=== PATIENT | male | born 1985 | race Caucasian/White ===

== ENCOUNTER 2019-09-08 12:04 | Emergency (ER) | payer MEDICAID, SELFPAY ==
[2019-09-08 12:07] VITALS: BP 152/98; PULSE 76; RESP 14; TEMP 37; O2SAT 98
--- NOTE | 2019-09-08 12:27 | ED.GENADUL_ITS ---
Discharge Plan Disposition Patient Disposition: HOME Discharge Details Chief Complaint: DentalOral Clinical Impression: Dental caries Primary Care Provider: Ricardo Cruz ED Provider: Maylin Casper Home Meds and New Rx's Prescriptions: New clindamycin HCl 300 mg capsule 300 mg PO BID 7 Days Qty: 14 RF: 0 No Action acetaminophen [Tylenol Extra Strength] 500 MG tablet 1,000 mg PO PRN PRNRF: 0 ibuprofen [Advil Liqui-Gel] 200 MG capsule 400 mg PO 0800 RF: 0 methadone 40 MG tablet,soluble 40 mg PO DAILY RF: 0 Discharge Instructions Instructions: How to Stop Smoking (ED), Dental Caries (ED) Additional Instructions: Follow up with Dentist.Stop smoking. You have been given dental resources. Take antibiotic as directed. Referrals: Ricardo Cruz MD [Primary Care Provider] - Medical Decision Making 33-year-old male with a history of chronic dental problems presents for dental pain. Patient states he has had this for 2 years. He is a smoker. He has multiple broken or missing teeth with dental caries. Gingiva is erythemic, no areas of fluctuance or signs of abscess. He has no other complaints at this time. Patient given topical Hurricaine benzocaine gel. Clindamycin 150 mg p.o. given in department. Prescription written for 300 mg twice a day x7 days. This is chronic in nature no signs of abscess or any intervention needed at this time. Patient given dental resources that are open during the COVID pandemic. Patient discharged home with strict return instructions. HPI General Mode of arrival: ambulatory . Date/Time Provider Initiated Documentation: 09/08/19 12:05 . Limitations to Documentation: no limitations . Information obtained by: patient . HPI Narrative: 33-year-old male with a history of chronic dental problems presents for dental pain. Patient states he has had this for 2 years. He is a smoker. He has multiple broken or missing teeth with dental caries. Gingiva is erythemic, no areas of fluctuance or signs of abscess. He has no other complaints at this time. Related Data Home Medications Medication Instructions Recorded Confirmed acetaminophen [Tylenol Extra 1,000 mg PO PRN PRN 11/15/12 10/20/17 Strength] ibuprofen [Advil] 400 mg PO 0800 10/20/17 10/20/17 methadone 40 mg PO DAILY 10/20/17 10/20/17 clindamycin HCl 300 mg PO BID 7 Days #14 cap 09/08/19 Previous Rx's Medication Instructions Recorded clindamycin HCl 300 mg PO BID 7 Days #14 cap 09/08/19 Allergies Allergy/AdvReac Type Severity Reaction Status Date / Time No Known Allergies Allergy Unverified 09/08/19 12:10 General Stated Complaint: DentalOral SANDRA: 5 Review of Systems Narrative: Constitutional: Negative for weight loss, alert and oriented, well groomed, normal body habitus, appears comfortable. HEENT: Denies trauma, headaches, blurry vision, nasal discharge, sore throat, trouble swallowing. Chest: Denies chest pain, palpitations, irregular rhythm, hypertension. Respiratory: Denies Shortness of breath, cough, hemoptysis. GI: Denies abdominal pain, nausea, vomiting, diarrhea, constipation. [facility] Social History Smoking/Tobacco Use Status: Current every day Alcohol Intake: current Drug use: Never Substance use type: does not use Do you feel safe at home: Yes Do you feel safe in your relationship?: Yes Exam Narrative Exam Narrative: Constitutional: Alert and oriented x3. Appears stated age. Normal body habitus. Head: Normocephalic, no trauma. Eyes: Pupils PERRLA, Red reflex noted, EOM's intact. Eyelids symmetrical without lesions, discharge, or swelling. ENT: Bilateral TM's WNL, External ear normal to inspection, no mastoid TTP, swelling, or erythema, Nasal turbinates WNL, no nasal discharge. Posterior pharynx WNL, no exudate. Multiple dental caries multiple broken teeth with surrounding gingival erythema. No area of fluctuance or signs of abscess. Chest: RRR, Normal S1, S2, distal pulses intact. Resp: Lungs clear to auscultation bilaterally, no wheezes, rales, or rhonchi. Hematologic/Lymphatic: No ecchymosis, no lymphadenopathy. Course Vital Signs Vital signs: Vital Signs Temperature 37.0 C 09/08/19 12:07 Pulse 76 09/08/19 12:07 Respiratory Rate 14 09/08/19 12:07 Blood Pressure 152/98 H 09/08/19 12:07 Pulse Oximetry 98 09/08/19 12:07 Temperature 37.0 C 09/08/19 12:07 Temperature Source Skin 09/08/19 12:07 Pulse 76 09/08/19 12:07 Respiratory Rate 14 09/08/19 12:07 Respiratory Effort Non-Labored 09/08/19 12:13 Blood Pressure 152/98 H 09/08/19 12:07 Blood Pressure Position Sitting 09/08/19 12:07 Pulse Oximetry 98 09/08/19 12:07 Oxygen Delivery Method Room Air 09/08/19 12:07 Oxygen Flow Rate 0 09/08/19 12:07 Pain Level 8 09/08/19 12:13
[2019-09-08] MEDS: Benzocaine 20% Gel 30 GM JAR MM (12:32)
[2019-09-08] MEDS: Clindamycin 150 MG CAP PO (12:33)
== END 2019-09-08 12:31 | disposition home or self-care (01) ==
PROVIDERS: Emergency Provider Registered Nurse Emergency; PCP Internal Medicine
DX: R68.84 Jaw pain (principal); K08.89 Other specified disorders of teeth and supporting structures; F17.210 Nicotine dependence, cigarettes, uncomplicated
CPT/HCPCS: 99283

== ENCOUNTER 2021-01-26 13:53 | Emergency (ER) | payer MEDICAID, SELFPAY ==
[2021-01-26 13:55] VITALS: BP 122/81; PULSE 85; RESP 16; TEMP 36.4; O2SAT 98
--- NOTE | 2021-01-26 14:00 | DI.CT_ITS ---
Exam(s) CT LUMBAR SPINE SI JOINTS WO EXAM: CT LUMBAR SPINE SI JOINTS WO CLINICAL HISTORY: R low back/hip pain. TECHNIQUE: Imaging Protocol: Axial computed tomography images with coronal and sagittal reformatted images were created and reviewed COMPARISON: CT LUMBAR AND THORACIC SP RECONS from 10/20/2017 FINDINGS: Bones: The last intervertebral disc space is designated the L5/S1 level for the numbering purpose of this examination. The vertebral body heights are well maintained. Alignment is satisfactory. No frac ture is seen. There is L5 spondylolysis but no spondylolisthesis. T12-L1: No disc herniations or bulges are present. No central spinal canal or neural foraminal steno sis. L1-2: No disc herniations or bulges are present. No central spinal canal or neural foraminal stenosi s. L2-3: No disc herniations or bulges are present. No central spinal canal or neural foraminal stenosi s. L3-4: No disc herniations or bulges are present. No central spinal canal or neural foraminal stenosi s. L4-5: No disc herniations or bulges are present. No central spinal canal or neural foraminal stenosi s. L5-S1: There is a right lateral disc herniation causing marked right neural foraminal stenosis. No central spinal canal or left neural foraminal stenosis is seen. Soft Tissues: The visualized SI joints and sacrum are will maintained. The paraspinal soft tissues a re unremarkable. IMPRESSION: 1. Right lateral disc herniation at L5-S1 causing marked right neural foraminal stenosis. 2. Results of this exam have been verbally communicated with provider. RADIATION DOSE DELIVERED: 984.56mGy.cm Total DLP 984.56mGy.cm Total DLP DATA REPOSITORY: All CT scans at this facility are submitted to the National Radiology Data Registry (NRDR) Dose Index Registry (DIR) with the [employer] (ACR). RADIATION OPTIMIZATION: All CT scans at this facility use at least one of these dose optimization te chniques: automated exposure control; mA and/or kV adjustment per patient size (includes targeted exa ms where dose is matched to clinical indication); or iterative reconstruction.
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
[2021-01-26] MEDS: Ketorolac 15 MG/ML VIAL IVP (14:44)
[2021-01-26] MEDS: Dexamethasone 10 MG/ML VIAL IVP (14:46)
[2021-01-26] MEDS: HYDROmorphone 2 MG/ML VIAL 1 MG IVP ×2 (14:48→16:16)
[2021-01-26] MEDS: Normal Saline Flush 10 ML SYR IVP (14:49)
[2021-01-26 16:48] VITALS: BP 144/101; PULSE 77; TEMP 36.1; O2SAT 93
[2021-01-26] MEDS: ACETAMINOPHEN 1,000 MG/100 ML BTL 400 MG IVPB (17:13)
[2021-01-26] MEDS: HYDROmorphone 2 MG/ML VIAL 0.5 MG IVP (17:14)
[2021-01-26] MEDS: HYDROmorphone 2 MG TAB PO ×2 (17:35)
[2021-01-26 17:39] VITALS: BP 129/73; PULSE 74; RESP 14; TEMP 36.2; O2SAT 97
== END 2021-01-26 17:56 | disposition home or self-care (01) ==
LOC: ER 16:16
PROVIDERS: Emergency Provider Emergency Medicine; PCP Internal Medicine
DX: M51.27 Other intervertebral disc displacement, lumbosacral region (principal)
CPT/HCPCS: 96374; 96375; 96376; 99284; 72131; J0131; J1100; J1885

== ENCOUNTER 2022-05-11 14:20 | Emergency (ER) | payer MEDICAID, SELFPAY ==
[2022-05-11] VITALS (160 sets, daily range): BP systolic 117–144; BP diastolic 64–105; PULSE 71–87; RESP 8–27; O2SAT 96
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
--- NOTE | 2022-05-11 14:32 | DI.CT_ITS ---
Exam(s) CT CHEST/ABD/PEL W CT THORACIC LUMBAR SPINE REC EXAM: CT CHEST/ABD/PEL W and CT thoracic and lumbar spine recons CLINICAL HISTORY: trauma TECHNIQUE: Imaging Protocol: Axial computed tomography images with coronal and sagittal reformatted images were created and reviewed CONTRAST MATERIAL: Intravenous: Omnipaque 350 contrast volume:100 mL Oral: No COMPARISON: CT CT CAROTID NECK CTA from 05/11/2022 FINDINGS: CHEST: Tracheobronchial tree: Patent where visualized. Pulmonary parenchyma: No consolidation or dominant measurable mass. No architectural distortion. Ther e is dependent atelectasis in the lung bases. Visualized thyroid gland: Unremarkable. Mediastinum and Salma: No dominant adenopathy or fluid collection. The esophagus is unremarkable. Pleura: No effusion or pneumothorax. Heart: The heart is not dilated. No coronary artery calcifications are seen. No pericardial effusion. Pulmonary arteries: Due to the timing of the bolus, pulmonary artery opacification is not adequate fo r evaluation for peripheral pulmonary artery emboli. No large central pulmonary embolus is identifie d. Aorta: Thoracic aorta non-dilated. Lymph nodes: Within normal limits. Soft tissues: Unremarkable. No radiopaque foreign bodies. Bones:Within normal limits for the patient's age. CT thoracic spine recons: No acute fracture or subluxation is seen in the thoracic spine. ABDOMEN: Liver: Normal density. No measurable mass. Portal, Superior Mesenteric, and Splenic Veins: Unremarkable. Gallbladder and Biliary Tract: No radiodense calculus or dilation. Pancreas: Normal density, no abnormal calcifications or inflammatory process. Spleen: Normal. Adrenals: No masses seen. Kidneys: Normal size, contour and axis. No radiodense stones or obstructive uropathy. No masses seen. Abdominal Aorta: Abdominal portion non-dilated. Bowel: No obstruction or bowel wall thickening. No evidence of appendicitis. Peritoneal Cavity: No ascites, collection or mesenteric inflammatory response. No free air. Lymph Nodes: Within normal limits. Bones: Within normal limits for the patient's age. There is L5 spondylolysis but no spondylolisthesi s. Soft Tissues: Unremarkable. CT lumbar spine recons: No acute fracture or subluxation is seen the lumbar spine. PELVIS: Bladder: Symmetric distention, no gross wall thickening. Reproductive Organs: Unremarkable as visualized. Lymph Nodes: Within normal limits. Bones: Within normal limits. IMPRESSION: 1. No acute chest, abdominal or pelvic process. 2. No acute thoracic or lumbar spine fracture or subluxation. 3. Findings were discussed with the emergency department at 3:33 p.m. on 05/11/2022. RADIATION DOSE DELIVERED: 1470.31 mGy.cm Total DLP DATA REPOSITORY: All CT scans at this facility are submitted to the National Radiology Data Registry (NRDR) Dose Index Registry (DIR) with the [employer] (ACR). RADIATION OPTIMIZATION: All CT scans at this facility use at least one of these dose optimization te chniques: automated exposure control; mA and/or kV adjustment per patient size (includes targeted exa ms where dose is matched to clinical indication); or iterative reconstruction.
--- NOTE | 2022-05-11 14:32 | DI.CT_ITS ---
Exam(s) CT CAROTID NECK CTA EXAM: CT CAROTID NECK CTA CLINICAL HISTORY: trauma. TECHNIQUE: Imaging Protocol: Axial CT angiography was performed with multi-slice acquisition and mu lti-planar and/or 3D reconstructions. CONTRAST MATERIAL: Intravenous: Omnipaque 350 Contrast volume:85 mL COMPARISON: CT CHEST ABD PELVIS WITH CONTRAST from 10/20/2017 FINDINGS: CTA Neck W: Common Carotid: Right: No aneurysm, occlusion or significant stenosis. Left: No aneurysm, occlusion or significant stenosis. External Carotid: Right: No aneurysm, occlusion or significant stenosis. Left: No aneurysm, occlusion or significant stenosis. Internal Carotid: Right: No aneurysm, occlusion or significant stenosis. Left: No aneurysm, occlusion or significant stenosis. Vertebral Artery: Right: No aneurysm, occlusion or significant stenosis. Left: No aneurysm, occlusion or significant stenosis. Lung Apices: No apical pneumothorax. Bones: No acute fracture or subluxation in the cervical spine. Soft Tissues: Please see the CT scan of the face for complete details of the soft tissues of the neck . IMPRESSION: 1. No evidence of arterial injury or extravasation. 2. Findings were discussed with Dr. Dawson at 3:20 p.m. on 05/11/2022. RADIATION DOSE DELIVERED: 389.99mGy.cm Total DLP DATA REPOSITORY: All CT scans at this facility are submitted to the National Radiology Data Registry (NRDR) Dose Index Registry (DIR) with the [employer] (ACR). RADIATION OPTIMIZATION: All CT scans at this facility use at least one of these dose optimization te chniques: automated exposure control; mA and/or kV adjustment per patient size (includes targeted exa ms where dose is matched to clinical indication); or iterative reconstruction.
[2022-05-11] MEDS: Normal Saline 1,000 ML 1000 ML IV (14:34)
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
[2022-05-11 14:41] LABS: Abs Immature Grans 0.03 10^3/uL (0.0-0.06); Absolute Basophil Count 0.03 10^3/uL (0.0-0.2); Absolute Eosinophil Count 0.05 10^3/uL (0.0-0.7); Absolute Lymphocyte Count 2.08 10^3/uL (1.2-3.4); Absolute Monocyte Count 0.74 10^3/uL (0.1-0.8); Basophils % 0.3; Eosinophils % 0.6; HCT 47.7 % (40.0-50.0); HGB 16.3 g/dL (13.5-17.5); Immature Grans % 0.3; MCH 32.1 pg (27.0-33.0); MCHC 34.2 % (32.0-36.0); MCV 94 fL (80-95); MPV 10.5 fL (8.0-11.0); Monocytes % 8.2; Neutrophils % 67.6; Platelet Count 232 10^3/uL (130-400); RBC 5.07 10^6/uL (4.36-5.78); RDW 13.5 % (11.8-14.1); RDW-SD 46.2 fL; WBC 9.03 10^3/uL (4.4-10.8)
[2022-05-11] MEDS: Omnipaque 350 MG/ML 100 ML BTL IJ (14:55)
[2022-05-11] MEDS: Omnipaque 350 MG/ML 500 ML BTL-Imaging package IJ (14:58)
[2022-05-11] MEDS: Normal Saline Flush 10 ML SYR IVP (14:59)
[2022-05-11 15:03] LABS: ALT 24 U/L (16-63); AST 21 U/L (15-37); Albumin 4.5 g/dL (3.4-5.0); Alkaline Phosphatase 62 U/L (46-116); BUN 11 mg/dL (7-18); Bilirubin, Total 0.6 mg/dL (0.2-1.0); Calcium 9.5 mg/dL (8.5-10.1); Chloride 104 mmol/L (98-107); Estimated GFR 101.28 (mL/min/1.73m2); Glucose 107 mg/dL (74-106); Magnesium 2.3 mg/dL (1.8-2.4); Potassium 4.1 mmol/L (3.5-5.1); Sodium 140 mmol/L (136-145); Total Protein 7.8 g/dL (6.4-8.2)
[2022-05-11] MEDS: ceFAZolin 2 GM/50 ML BAG IV (15:13)
--- NOTE | 2022-05-11 15:19 | NUR.NOTE ---
Nursing Note: this RN accompanied pt to CT and remained with pt until return to ED
[2022-05-11] MEDS: MORPHine 10 MG/ML VIAL 6 MG IVP (15:50)
[2022-05-11] MEDS: Ketorolac 15 MG/ML VIAL IVP (15:53)
--- NOTE | 2022-05-11 15:53 | NUR.NOTE ---
Nursing Note: c-collar removed by
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
--- NOTE | 2022-05-11 16:15 | NUR.NOTE ---
Nursing Note: Pt reports pain medication has helped, pain decreased, unable to quantify, states its just better now, thank you. VSP in to see pt. Superficial wound to mid back cleansed and steristip applied per provider. Provider completed stitches (5) to left head laceration, face cleansed and ice pack applied. Phone given to pt per request to contact parents, cont. to monitor.
[2022-05-11] MEDS: Acetaminophen 500 MG TAB 1000 MG PO (17:50)
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
== END 2022-05-11 18:38 | disposition home or self-care (01) ==
PROVIDERS: Emergency Medicine; Emergency Provider Emergency Medicine; PCP Internal Medicine
DX: S06.0XAA Concussion with loss of consciousness status unknown, initial encounter (principal); S01.81XA Laceration without foreign body of other part of head, initial encounter; T14.8XXA Other injury of unspecified body region, initial encounter; G89.11 Acute pain due to trauma; M54.6 Pain in thoracic spine; Z23 Encounter for immunization; Y04.2XXA Assault by strike against or bumped into by another person, initial encounter
CPT/HCPCS: 12013; 36415; 70498; 74177; 80053; 86850; 86900; 86901; 90471; 96361; 96365; 96375; 99285; 70450; 70486; 71260; 83735; 85025; 99284; J0690; J1885; J2270; J3490

== ENCOUNTER 2022-05-17 11:01 | Emergency (ER) | payer MEDICAID, SELFPAY ==
[2022-05-17 11:09] VITALS: BP 120/75; PULSE 84; RESP 18; TEMP 37; O2SAT 98
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
== END 2022-05-17 11:29 | disposition home or self-care (01) ==
PROVIDERS: Emergency Provider Physician Assistant; PCP Nurse Practitioner Family
DX: S01.81XD Laceration without foreign body of other part of head, subsequent encounter (principal); X58.XXXD Exposure to other specified factors, subsequent encounter; Z48.02 Encounter for removal of sutures

== ENCOUNTER 2023-08-08 14:11 | Emergency (ER) | payer MEDICAID, SELFPAY ==
[2023-08-08 14:17] VITALS: BP 146/87; PULSE 76; RESP 18; TEMP 36.8; O2SAT 96
--- NOTE | 2023-08-08 14:20 | ED.GENADUL_ITS ---
Discharge Plan Disposition Patient Disposition: [facility] Condition: Stable Discharge Details Clinical Impression: Substance abuse Primary Care Provider: Smitha Shirley ED Provider: Armen Quinones Home Meds and New Rx's Prescriptions: Continued ibuprofen [Advil Liqui-Gel] 200 mg capsule 600 mg PO TID PRN Discharge Instructions Additional Instructions: You have no concerning findings on your exam and vital signs are all stable, there is no emergent need to have any testing done at this time. You are medically screened and released from the emergency department. HPI General Mode of arrival: EMS . Date/Time Provider Initiated Documentation: 08/08/23 14:11 . Limitations to Documentation: no limitations . Information obtained by: patient . History of Present Illness 37 year old M presents to the emergency department with the chief complaint of Substance abuse, described as moderate, Patient started experiencing this year(s) (1) and it has been intermittent. No relieving factors improve symptom(s), No exacerbating factors reported . Patient did receive the following treatments prior to arrival, none Related Data Home Medications Medication Instructions Recorded Confirmed ibuprofen 200 mg capsule (Advil 600 mg PO TID PRN 09/20/22 Liqui-Gel) Allergies Allergy/AdvReac Type Severity Reaction Status Date / Time cyclobenzaprine Allergy Mild Verified 09/20/22 10:12 [From Flexeril] methocarbamol Allergy Mild Verified 09/20/22 10:12 General SANDRA: 4 Review of Systems All systems reviewed & are unremarkable except as noted in HPI and below Constitutional Constitutional: Denies chills, Denies fever(s) and Denies weakness Cardiovascular Cardiovascular: Denies chest pain and Denies dyspnea Respiratory Respiratory: Denies cough and Denies dyspnea Gastrointestinal Gastrointestinal: Denies abdominal pain, Denies nausea and Denies vomiting Musculoskeletal Musculoskeletal: Denies joint swelling Neurologic Neurologic: Denies weakness Exam Const General: no acute distress Orientation: alert HENMT Head: normal to inspection Ears: external ears normal General nose exam: external nose normal Mouth: moist mucous membranes Eyes General: appearance normal, both eyes and all related structures Neck Neck: normal visual inspection Resp Effort & Inspection: normal respiratory effort and able to speak in complete sentences Cardio Rate: regular rate Skin General skin exam: no rashes or lesions noted Neuro General: patient alert and patient oriented x3 Extrem General: normal to inspection Psych Mental Status: mental status grossly normal Course Lab/Test Results Lab/Test Results: Laboratory Tests Range/Units 08/08/23 14:12 VBG pH Cancelled VBG pCO2 Cancelled VBG pO2 Cancelled VBG HCO3 Cancelled VBG Total CO2 Cancelled VBG O2 Saturation Cancelled VBG Base Excess Cancelled Ammonia Cancelled Acetaminophen Cancelled Medical Decision Making 37-year-old male with a history of substance abuse, comes in with from a state police with concerns of substance use. He apparently has a warrant for his arrest and was trespassing on people's property so was apprehended by police. He had some what appeared to be crack pipes on his self when he got him. While doing intake he started getting a little groggy so they called EMS who brought him here, his fingerstick with EMS was normal. Arrives alert and oriented x 4 answering questions appropriately. Denies any headache, chest pain, abdominal pain, fevers, does admit to using cocaine. He has no focal deficits, no signs of trauma, clear speech. Vital signs are stable, do not feel any acute testing indicated given he has no complaints. He is stable to be released into police custody and will be transferred to the correctional center. Differential Diagnosis Differential Diagnosis: Behavioral issues, substance abuse Quality:SDOH Health Related Social Needs: No Data to Display PFSH All Active Problems (Updated 08/08/23 @ 14:21 by Armen Quinones MD) Substance abuse (Acute) Herniation of intervertebral disc between L5 and S1 (Acute) Medical History (Updated 08/08/23 @ 14:21 by Armen Quinones MD) Pneumothorax on right Rib pain on right side Substance abuse Back disorder Knee pain, right Sciatica Facial numbness Social History Smoking/Tobacco Use Status: Former Tobacco Use Smoking risk assessment performed?: Yes Alcohol Intake: current Alcohol Intake frequency: a few times a week Drug use: Never Substance use type: does not use Do you feel safe at home: Yes Do you feel safe in your relationship?: Yes
== END 2023-08-08 14:40 ==
LOC: ER 14:29
PROVIDERS: Emergency Provider Emergency Medicine; PCP Nurse Practitioner Family
DX: F19.10 Other psychoactive substance abuse, uncomplicated (principal); Z87.891 Personal history of nicotine dependence
CPT/HCPCS: 80053; 82550; 82805; 99282; 80320; 80329; 82140; 83735; 84443; 85025